=== PATIENT | male | born 1985 | race Caucasian/White ===

== ENCOUNTER 2021-11-17 10:14 | Emergency (ER) | payer MEDICARE ==
[2021-11-17 10:31] VITALS: BP 145/89; PULSE 87; RESP 20; TEMP 98.8
--- NOTE | 2021-11-17 12:51 | ED ---
Psych HPI - General Chief Complaint: Psychiatric Symptoms Stated Complaint: petition Time Seen by Provider: 11/17/21 10:56 Source: patient, police, RN notes reviewed Mode of arrival: ambulatory - History of Present Illness Initial Comments: 36-year-old male presents emergency Department with Skating Carhop from [facility] for psychiatric evaluation. Patient before his been having some erratic behavior, possible hallucinations. Patient has underlying bipolar disorder. Patient denies any suicidal or homicidal. Patient does admit to prior marijuana use no current alcohol use. Patient has no physical complaints patient offers no other complaints. - Related Data Previous Rx's Medication Instructions Recorded QUEtiapine [SEROquel] 100 mg PO HS PRN #14 tablet 11/17/21 Allergies Allergy/AdvReac Type Severity Reaction Status Date / Time No Known Allergies Allergy Verified 11/17/21 10:31 Review of Systems ROS Statement: Those systems with pertinent positive or pertinent negative responses have been documented in the HPI. ROS Other: All systems not noted in ROS Statement are negative. Past Medical History Past Medical History: No Reported History History of Any Multi-Drug Resistant Organisms: None Reported Past Surgical History: Ear Surgery, Orthopedic Surgery Past Psychological History: Unable to Obtain Smoking Status: Never smoker Past Alcohol Use History: Occasional Past Drug Use History: Marijuana General Exam Limitations: no limitations General appearance: alert, in no apparent distress Head exam: Present: atraumatic, normocephalic, normal inspection Eye exam: Present: normal appearance, PERRL, EOMI. Absent: scleral icterus, conjunctival injection, periorbital swelling ENT exam: Present: normal exam, mucous membranes moist Neck exam: Present: normal inspection. Absent: tenderness, meningismus, lymphadenopathy Respiratory exam: Present: normal lung sounds bilaterally. Absent: respiratory distress, wheezes, rales, rhonchi, stridor Cardiovascular Exam: Present: regular rate, normal rhythm, normal heart sounds. Absent: systolic murmur, diastolic murmur, rubs, gallop, clicks Course Vital Signs 11/17/21 10:28 Temperature 98.8 F Pulse Rate 87 Respiratory 20 Rate Blood Pressure 145/89 O2 Sat by Pulse 98 Oximetry Medical Decision Making - Medical Decision Making 36-year-old presented from [facility] for psychiatric evaluation. Patient does not meet inpatient criteria per psychiatrist. They did recommend Seroquel 100 mg at nighttime for sleep. Patient has underlying bipolar disorder. Disposition Clinical Impression: Bipolar disorder Disposition: HOME SELF-CARE Condition: Stable Instructions (If sedation given, give patient instructions): Bipolar Disorder (ED) Additional Instructions: Please return to the Emergency Department if symptoms worsen or any other concerns. Prescriptions: QUEtiapine [SEROquel] 100 mg PO HS PRN #14 tablet PRN Reason: Insomnia Is patient prescribed a controlled substance at d/c from ED?: No Referrals: Bernice Pillai MD [Primary Care Provider] - 1-2 days Time of Disposition: 12:49
== END 2021-11-17 13:18 | disposition home or self-care (01) ==
LOC: EC 10:14
DX: F31.9 Bipolar disorder, unspecified (principal)
CPT/HCPCS: 82075; 99283